=== PATIENT | male | born 1950 | race Caucasian/White ===

== ENCOUNTER 2018-01-09 20:05 | Emergency (ER) | payer OTHER ==
[~2018-01-09] VITALS: Ht 198.1 cm; Wt 106.6 kg
--- NOTE | ~2018-01-09 | EKG ---
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: Nuris CROWLEY : 1950 Requested By: Ranjeet Bonilla Order Number: [id number] MD: Gigi Morales Measurements Intervals [place] Rate: 105 P: 7 CT: 151 QRS: 6 QRSD: 76 T: 18 QT: 349 QTc: 462 Interpretive Statements Sinus tachycardia Borderline low voltage, extremity leads Baseline wander in lead(s) V2 No previous ECG available for comparison Electronically Signed On 01-10-2018 8:43:16 SYSTEM ARCHITECT by Gigi Morales [email or web address] <ELECTRONICALLY SIGNED> By: Gigi Morales MD, [facility] 01/10/18 [id number] Gigi Morales MD, FACC /EPI
[2018-01-09 20:07] VITALS: BP 118/69
[2018-01-09] MEDS ORDERED: ASPIR 8181 MG PO (20:32)
[2018-01-09] MEDS ORDERED: BISAC-EVAC10 MG RECTAL (20:32)
[2018-01-09] MEDS ORDERED: ACETAMIN-CODE12.5 ML PO (20:32)
[2018-01-09] MEDS ORDERED: ANCEF 1GM1 GM/50 M1 IVPB (20:33)
[2018-01-09] MEDS ORDERED: CELEXA10 MG PO (20:33)
[2018-01-09] MEDS ORDERED: FLEXERIL PO (20:34)
[2018-01-09] MEDS ORDERED: VITAMIN B-12500 MCG PO (20:34)
[2018-01-09] MEDS ORDERED: NEURONTIN 300300 M1 PO (20:35)
[2018-01-09] MEDS ORDERED: HYDRALAZINE 10M10 MG PO (20:35)
[2018-01-09] MEDS ORDERED: FLOMAX0.4 MG PO (20:35)
[2018-01-09] MEDS ORDERED: DURAGESIC1 EAC1 TRANSDERM (20:35)
[2018-01-09] MEDS ORDERED: FOLIC ACID1 MG PO (20:35)
[2018-01-09] MEDS ORDERED: HUMALOG KW100 UNIT/1 SUBQ (20:36)
[2018-01-09] MEDS ORDERED: ACIDOPHILUS LA1 EAC1 PO (20:37)
[2018-01-09] MEDS ORDERED: IRON325 M1 PO (20:37)
[2018-01-09] MEDS ORDERED: LACTULOSE20 GM/30 M PO (20:58)
[2018-01-09] MEDS ORDERED: LANTUS SOL100 UNIT/1 SUBQ (20:58)
[2018-01-09] MEDS ORDERED: LISINOPRIL40 MG PO (20:58)
[2018-01-09] MEDS ORDERED: MAALOX ADVANCE355 M1 PO (20:59)
[2018-01-09] MEDS ORDERED: TOPROL XL25 MG PO (21:01)
[2018-01-09] MEDS ORDERED: NICOTINE TRANSD21 M1 (21:02)
[2018-01-09] MEDS ORDERED: RESTORIL15 MG PO (21:03)
[2018-01-09] MEDS ORDERED: ROBAXIN 750 MG750 M1 PO (21:03)
[2018-01-09] MEDS ORDERED: HYDROCODONE-AP1 EAC6 PO (21:03)
[2018-01-09] MEDS ORDERED: VOLTAREN GEL 1100 G1 TOP (21:04)
[2018-01-09] MEDS ORDERED: ONDANSETRON HCL4 M2 PO (21:04)
[2018-01-09 21:06] LABS: ABSOLUTE NEUTROPHILS 8.6 thou/uL (1.4-8.2); BASOPHILS 0.2 % (0.0-2.0); EOSINOPHILS 0.1 % (0.0-3.0); HEMATOCRIT 27.1 % (42.0-52.0); HEMOGLOBIN 9.3 gm/dL (14.0-18.0); MCH 29.4 pg (26.0-34.0); MCHC 34.3 g/dL (28.0-37.0); MCV 85.8 fL (80.0-100.0); MONOCYTES 7.1 % (1.0-8.0); PLATELET COUNT 122 thou/uL (150-400); POLYS 90.6 % (36.0-66.0); RBC 3.16 mil/uL (4.50-6.00); RDW 16.2 % (10.5-14.5); WBC 9.5 thou/uL (4.0-11.0)
[2018-01-09 21:11] LABS: BE(vivo) -1.3 mmol/L (-2 to +3); PO2 68.2 mmHg (80.0-100.0); pH 7.595 (7.360-7.450); sO2 96.4 % (92.0-98.0)
[2018-01-09 21:19] LABS: CALCIUM 8.8 mg/dL (8.5-10.1); CREATININE 2.5 mg/dL (0.7-1.3); POTASSIUM 4.5 mmol/L (3.5-5.1)
[2018-01-09 21:25] LABS: ALBUMIN 2.2 g/dL (3.4-5.0); TOTAL BILIRUBIN 0.7 mg/dL (<0.1-1.0); TOTAL PROTEIN 7.8 g/dL (6.4-8.2)
[2018-01-09 21:36] VITALS: BP 118/69
[2018-01-10 00:21] VITALS: BP 99/64
== END 2018-01-10 00:22 | disposition short-term general hospital (02) ==
LOC: ER 20:05 → EROBS 21:29 → ER 01-10 00:22
PROVIDERS: Emergency Medicine
DX: A41.9 Sepsis, unspecified organism (principal); R79.89 Other specified abnormal findings of blood chemistry; J18.8 Other pneumonia, unspecified organism; Z87.891 Personal history of nicotine dependence; Z88.0 Allergy status to penicillin

== ENCOUNTER 2018-04-18 12:32 | Emergency (ER) | payer OTHER ==
[~2018-04-18] VITALS: Ht 177.8 cm; Wt 108.9 kg
[~2018-04-18 12:32] MED LIST: ACETAMIN-CODE12.5 ML PO; ACIDOPHILUS LA1 EAC1 PO; ANCEF 1GM1 GM/50 M1 IVPB; ASPIR 8181 MG PO; BISAC-EVAC10 MG RECTAL; CELEXA10 MG PO; DURAGESIC1 EAC1 TRANSDERM; FLEXERIL PO; FLOMAX0.4 MG PO; FOLIC ACID1 MG PO; HUMALOG KW100 UNIT/1 SUBQ; HYDRALAZINE 10M10 MG PO; HYDROCODONE-AP1 EAC6 PO; IRON325 M1 PO; LACTULOSE20 GM/30 M PO; LANTUS SOL100 UNIT/1 SUBQ; LISINOPRIL40 MG PO; MAALOX ADVANCE355 M1 PO; NEURONTIN 300300 M1 PO; NICOTINE TRANSD21 M1; ONDANSETRON HCL4 M2 PO; RESTORIL15 MG PO; ROBAXIN 750 MG750 M1 PO; TOPROL XL25 MG PO; VITAMIN B-12500 MCG PO; VOLTAREN GEL 1100 G1 TOP
[2018-04-18 14:19] VITALS: BP 148/94
== END 2018-04-18 14:20 | disposition home or self-care (01) ==
LOC: ER 12:32
DX: T83.098A Other mechanical complication of other urinary catheter, initial encounter (principal); M19.90 Unspecified osteoarthritis, unspecified site; E11.9 Type 2 diabetes mellitus without complications; G62.9 Polyneuropathy, unspecified; F32.9 Major depressive disorder, single episode, unspecified; I10 Essential (primary) hypertension; Z88.0 Allergy status to penicillin; Z87.891 Personal history of nicotine dependence